=== PATIENT | female | born 1980 | race Caucasian/White ===

== ENCOUNTER 2022-10-29 16:07 | Emergency (ER) | payer OTHER ==
[~2022-10-29] VITALS: Ht 157.5 cm; Wt 81.6 kg
[2022-10-29 16:50] VITALS: BP 140/79
--- NOTE | 2022-10-29 17:47 | NUR ---
PT ASSSESSMENT COMPLETED BY ADRIEL DEE, NO NURSING INTERVENTIONS REQUIRED AT THIS TIME.
[2022-10-29] MEDS ORDERED: LIDOCAINE 5% 1 EA PATCH TP ONE (17:50)
[2022-10-29] MEDS ORDERED: KETOROLAC 30 MG/ML VIAL IM ONE (17:50)
[2022-10-29] MEDS ORDERED: LID5T TP (18:05)
[2022-10-29] MEDS ORDERED: IBUP-2213 PO (18:05)
[2022-10-29] MEDS ORDERED: CYCL-711 PO (18:05)
[2022-10-29 18:28] VITALS: BP 140/79
--- NOTE | 2022-10-29 18:29 | NUR ---
Patient discharged with v/s stable. Written and verbal after care instructions given and explained. Patient alert, oriented and verbalized understanding of instructions. Ambulatory with steady gait. All questions addressed prior to discharge. ID band removed. Patient advised to follow up with PMD. Rx of lidocaine patch, ibuprofen given. Patient educated on indication of medication including possible reaction and side effects. Opportunity to ask questions provided and answered.
== END 2022-10-29 18:29 | disposition home or self-care (01) ==
LOC: MED 16:07 → EDSEX 16:07 → MED 18:29
DX: S29.012A Strain of muscle and tendon of back wall of thorax, initial encounter (principal); S29.011A Strain of muscle and tendon of front wall of thorax, initial encounter; Z88.0 Allergy status to penicillin; Z79.899 Other long term (current) drug therapy; V49.88XA Car occupant (driver) (passenger) injured in other specified transport accidents, initial encounter; Y93.89 Activity, other specified; Y92.89 Other specified places as the place of occurrence of the external cause; Y99.8 Other external cause status; S16.1XXA Strain of muscle, fascia and tendon at neck level, initial encounter
CPT/HCPCS: 81025; 96372; 99283; J1885